=== PATIENT | female | born 1990 | race Caucasian/White ===

== ENCOUNTER → 2016-05-29 | Outpatient (CLI) | payer OTHER ==
[2016-05-29 18:14] LABS: MEAN CORPUSCULAR HEMOGLOBIN 30.8 pg (27.0-33.0); MEAN CORPUSCULAR HGB CONC 34.7 g/dl (32.0-36.5); MEAN CORPUSCULAR VOLUME 88.6 fl (80.0-96.0); RED CELL DISTRIBUTION WIDTH 12.4 % (11.5-14.5)
== END ==
LOC: M WUC 14:45
PROVIDERS: ATTEND Obstetrics & Gynecology
DX: Z34.82 Encounter for supervision of other normal pregnancy, second trimester (principal); Z36 Encounter for antenatal screening of mother

== ENCOUNTER → 2016-06-04 | Outpatient (CLI) | payer OTHER | LOC: M LAB 09:08 | PROVIDERS: ATTEND Obstetrics & Gynecology | DX: Z34.82 Encounter for supervision of other normal pregnancy, second trimester (principal); Z36 Encounter for antenatal screening of mother ==

== ENCOUNTER → 2016-07-24 | Outpatient (REF) | payer OTHER | LOC: M LAB REF 13:12 | PROVIDERS: ATTEND Specialist | DX: Z34.83 Encounter for supervision of other normal pregnancy, third trimester (principal); Z36 Encounter for antenatal screening of mother ==

== ENCOUNTER 2016-08-11 05:06 | Inpatient (IN) | payer OTHER ==
[~2016-08-11] VITALS: Ht 165.1 cm; Wt 73.0 kg
[2016-08-11] VITALS (7 sets, daily range): BP systolic 107–116; BP diastolic 60–79
[~2016-08-11 05:06] MED LIST: no meds
[2016-08-11] MEDS ORDERED: BICITRA 30ML SOLN UDC PO ONE (05:30)
[2016-08-11 06:13] LABS: MEAN CORPUSCULAR HEMOGLOBIN 30.2 pg (27.0-33.0); MEAN CORPUSCULAR HGB CONC 34.6 g/dl (32.0-36.5); MEAN CORPUSCULAR VOLUME 87.5 fl (80.0-96.0); RED CELL DISTRIBUTION WIDTH 12.2 % (11.5-14.5); WHITE BLOOD COUNT 8.6 K/mm3 (4.0-10.0)
[2016-08-11] MEDS ORDERED: OXYTOCIN INJ 10 UNITS/ML VIAL (J2590) As Ordered ONE (07:33)
[2016-08-11] MEDS ORDERED: ePHEDrine SULFATE 25 MG/5 ML(5MG/ML) SYRINGE As Ordered ONE (07:33)
[2016-08-11] MEDS ORDERED: PHENYLephrine HCL 500 MCG/5 ML (100MCG/ML) SYRINGE (J2370) As Ordered ONE (07:33)
[2016-08-11] MEDS ORDERED: dexameTHASONE 4 MG/ML 1ML VIAL (J1100) As Ordered ONE (07:33)
[2016-08-11] MEDS ORDERED: KETOROLAC 60 MG/2 ML VIAL (J1885) As Ordered ONE (07:33)
[2016-08-11] MEDS ORDERED: MORPHINE PRES-FREE INJ 10 MG/10 ML VIAL (J2274) As Ordered ONE (07:33)
[2016-08-11] MEDS ORDERED: ONDANSETRON 4MG/2ML VIAL (J2405) As Ordered ONE (07:33)
[2016-08-11] MEDS ORDERED: NALOXONE INJ 0.4 MG/1 ML VIAL (J2310) IV PRN ×2 (07:43)
[2016-08-11] MEDS ORDERED: ONDANSETRON 4MG/2ML VIAL (J2405) IV PRN ×2 (07:43→09:15)
[2016-08-11] MEDS ORDERED: NALBUPHINE HCL 10 MG/ML AMP (J2300) IV PRN ×2 (07:43→09:15)
[2016-08-11] MEDS ORDERED: METOCLOPRAMIDE INJ 10MG/2ML VIAL (J2765) IV PRN (07:43)
[2016-08-11] MEDS ORDERED: IBUP800T23 PO (08:52)
[2016-08-11] MEDS ORDERED: OXYC1TAB23 PO (08:53)
[2016-08-11] MEDS ORDERED: MEASLES,MUMPS,RUBELLA VACCINE INJ (MMR-II) (90707) SC SCH (09:00)
[2016-08-11] MEDS ORDERED: MOM 30ML SUSPENSION UDC PO PRN (09:00)
[2016-08-11] MEDS ORDERED: RHOGAM 300 MCG (1500 IU) INJ (J2790) IM SCH (09:00)
[2016-08-11] MEDS ORDERED: DOCUSATE SODIUM 100 MG CAP PO PRN (09:00)
[2016-08-11] MEDS ORDERED: PERCOCET 5MG/325MG TAB PO PRN (09:00)
[2016-08-11] MEDS ORDERED: OXYTOCIN DRIP 30 UNITS in APPROPRIATE DILUENT 1 EA IV ONE (09:00)
[2016-08-11] MEDS ORDERED: fentaNYL 100 MCG/2 ML INJECTION (J3010) IV PRN (09:15)
[2016-08-11] MEDS ORDERED: MEPERIDINE INJ 25 MG/ML VIAL (J2175) IV PRN (09:15)
[2016-08-11] MEDS ORDERED: LR 1,000 ML IV SCH (09:15)
--- NOTE | 2016-08-11 09:25 | RO ---
DATE OF PROCEDURE: 08/11/2016 PREPROCEDURE DIAGNOSES: 1. Intrauterine at 39 plus weeks. 2. Elective primary section. POSTPROCEDURE DIAGNOSES: 1. Intrauterine at 39 plus weeks. 2. Elective primary section. PROCEDURE: Primary section. SURGEON: Dr. Aleshia Fisher CONTRACT ACCOUNTANT: Odalis Martino CNM ANESTHESIA: Spinal. ESTIMATED BLOOD LOSS: 500 mL. INTRAVENOUS FLUIDS: 1 liter of lactated ringer solution. URINE OUTPUT: 300 mL. PREOPERATIVE ANTIBIOTICS: 2 grams of Ancef. OPERATIVE FINDINGS: Live born male infant, 9 and 9, weight 3286 grams or 7 pounds 4 ounces. INDICATION FOR OPERATION: This patient is a 25-year-old 2, para 1 who presents at 39 plus weeks for a elective section. Her history is significant for vaginal delivery which she sustained a third degree midline laceration. She reports a prolong physical as well as psychological recovery after sustaining this injury. Desires a primary section. She has been thoroughly counseled in regards to the risk of surgery and after consultation desires to proceed with elective section. DESCRIPTION OF OPERATION: After informed consent was obtained and written content was reviewed, the patient was brought to the operating room where spinal anesthesia was placed. She was then placed in the supine position with a left lateral tilt. A Marino catheter was placed and set to gravity. She was then prepped and draped in a normal sterile fashion. A time out in the operating room was then performed identifying the patient, the procedure to be performed, as well as drug allergies. Anesthesia was then tested and deemed to be adequate. A Pfannenstiel skin incision was then made and carried down to the underlying rectus fascia. The fascia was scored and this incision was extended bilaterally. The fascia was then dissected off the underlying rectus muscles, both superiorly and inferiorly. The rectus muscles were in the midline. The peritoneum was then entered sharply. The vesicouterine peritoneum was then identified. It was tented and excised creating a bladder flap. The bladder blade was then placed to retract back the bladder. A curvilinear incision was then made in the lower uterine segment. Amniotomy was then performed productive of clear fluid. The head was brought to the level of the incision atraumatically followed by delivery of the shoulder and corpus. The cord was clamped times two and was cut. The was brought over to the warmer with a good cry. The placenta was then delivered grossly intact. The uterus was then exteriorized and cleared of all clots and debris. The uterine incision was then closed in two layers using #0 Vicryl. The first layer in a running locking fashion followed by a second layer of imbrication in a running nonlocking fashion. The abdomen was then suctioned. The uterus was returned to the patient's abdomen. It was reinspected and noted to be hemostatic. The anterior peritoneum was then reapproximated with #3-0 Vicryl. The rectus muscles were reapproximated using #3-0 Vicryl. The fascia was then closed with #0 Vicryl in a running nonlocking fashion. The subcutaneous tissue was then irrigated and suctioned. The subcutaneous tissue was then reapproximated using #3-0 Vicryl. Several subdermal stitches were placed using #3-0 Vicryl. The skin was closed with #4-0 Monocryl in a subcuticular fashion. Incision was then cleaned and dried. Mastisol was applied above and below the incision. Steri-Strips were applied over the incision. The incision was dressed. The patient was then taken to recovery in stable condition. Counts were correct. The couple has decided to name their son [email or web address]
[2016-08-11] MEDS: PRENATAL VITAMIN TAB PO SCH (10:45)
[2016-08-11] MEDS: LR 1,000 ML IV SCH ×2 (10:46→16:48)
[2016-08-11] MEDS: KETOROLAC 30 MG/ML VIAL (J1885) IV SCH ×2 (15:16→20:01)
[2016-08-12] MEDS: PERCOCET 5MG/325MG TAB PO PRN ×3 (02:32→18:03)
[2016-08-12] MEDS: KETOROLAC 30 MG/ML VIAL (J1885) IV SCH ×2 (02:33→08:43)
[2016-08-12 07:03] VITALS: BP 99/66
[2016-08-12 07:10] LABS: MEAN CORPUSCULAR HEMOGLOBIN 30.8 pg (27.0-33.0); RED CELL DISTRIBUTION WIDTH 12.3 % (11.5-14.5); WHITE BLOOD COUNT 11.5 K/mm3 (4.0-10.0)
[2016-08-12] MEDS: LR 1,000 ML IV SCH ×3 (07:29→16:45)
[2016-08-12] MEDS: PRENATAL VITAMIN TAB PO SCH (08:43)
[2016-08-12 10:27] VITALS: BP 103/68
[2016-08-12 14:23] VITALS: BP 111/71
[2016-08-12] MEDS: IBUPROFEN 800 MG TAB PO SCH ×2 (16:12→23:26)
[2016-08-12 18:01] VITALS: BP 118/83
[2016-08-12 22:26] VITALS: BP 123/78
[2016-08-13] MEDS: PERCOCET 5MG/325MG TAB PO PRN ×2 (02:18→08:37)
[2016-08-13 06:11] VITALS: BP 116/69
[2016-08-13] MEDS: PRENATAL VITAMIN TAB PO SCH (08:37)
[2016-08-13] MEDS: IBUPROFEN 800 MG TAB PO SCH (08:37)
[2016-08-13] MEDS ORDERED: PRENTAB9 PO (10:56)
== END 2016-08-13 16:20 | disposition home or self-care (01) | DRG 766 ==
LOC: M LDPACU 05:06 → M OBS 10:20
PROVIDERS: ADMIT Obstetrics & Gynecology; ATTEND Obstetrics & Gynecology
PROC: 10D00Z1 Extraction of Products of Conception, Low, Open Approach (ICD-10-PCS; principal; 2016-08-11 07:30)
DX: O80 Encounter for full-term uncomplicated delivery (principal); Z37.0 Single live birth; Z3A.39 39 weeks gestation of pregnancy; Z87.59 Personal history of other complications of pregnancy, childbirth and the puerperium

== ENCOUNTER → 2016-09-22 | Outpatient (REF) | payer OTHER ==
[~2016-09-22] MED LIST changes: +IBUP800T23 PO; +OXYC1TAB23 PO; +PRENTAB9 PO
== END ==
LOC: M LAB REF 16:35
PROVIDERS: ATTEND Physician Assistant
DX: N39.0 Urinary tract infection, site not specified (principal)

== ENCOUNTER → 2017-02-24 | Outpatient (REF) | payer OTHER ==
[~2017-02-24] MED LIST changes: +IBUP1TAB7 PO; -IBUP800T23 PO
== END ==
LOC: M LAB REF 09:15
PROVIDERS: ATTEND Physician Assistant
DX: R30.0 Dysuria (principal)

== ENCOUNTER → 2017-07-27 | Outpatient (REF) | payer OTHER | LOC: M LAB REF 11:47 | DX: Z12.4 Encounter for screening for malignant neoplasm of cervix (principal); R87.610 Atypical squamous cells of undetermined significance on cytologic smear of cervix (ASC-US) | CPT/HCPCS: G0123 ==

== ENCOUNTER → 2017-08-03 | Outpatient (CLI) | payer OTHER | LOC: M RAD 08:42 | DX: R10.2 Pelvic and perineal pain (principal) ==

== ENCOUNTER → 2017-10-06 | Outpatient (REF) | payer OTHER ==
[2017-10-06 15:02] LABS: CHLAMYDIA DNA AMPLIFICATION NEGATIVE (NEGATIVE); GC DNA AMPLIFICATION NEGATIVE (NEGATIVE)
== END ==
LOC: M LAB REF 12:20
DX: Z11.3 Encounter for screening for infections with a predominantly sexual mode of transmission (principal)
CPT/HCPCS: 87591

== ENCOUNTER → 2018-08-03 | Outpatient (REF) | payer OTHER | LOC: M LAB REF 11:45 | PROVIDERS: ATTEND Advanced Practice Midwife | DX: Z12.4 Encounter for screening for malignant neoplasm of cervix (principal) ==

== ENCOUNTER → 2025-02-11 | Outpatient (REF) | payer OTHER ==
[~2025-02-11] MED LIST changes: +COLA100C5 PO; +IBUP80TA PO; +TUMS750C5 PO
== END ==
LOC: M LAB REF 17:57
DX: J02.9 Acute pharyngitis, unspecified (principal)